=== PATIENT | female | born 1965 | race Two or more races ===

== ENCOUNTER 2021-11-24 01:10 | Emergency (ER) | payer BC ==
[~2021-11-24] VITALS: Ht 157.5 cm; Wt 65.8 kg
[2021-11-24] MEDS ORDERED: MORPHINE SULFATE 4 MG/ML SYR/VIAL IV ONE (02:00)
[2021-11-24 02:40] LABS: Basophils # (auto) 0.1 10 ^3/uL (0-0.2); Basophils % (auto) 0.9 % (0.0-2.0); Eosinophils # (auto) 0.1 10 ^3/uL (0-0.8); Eosinophils % (auto) 1.8 % (0.0-7.0); Hematocrit 38.2 % (36.0-46.0); Lymphocytes # (auto) 2.6 10 ^3/uL (0.4-5.4); Lymphocytes % (auto) 43.6 % (10.0-50.0); Mean Corpuscular Hgb Conc. 33.9 g/dL (32.0-36.0); Mean Corpuscular Volume 88.4 fL (80.0-100.0); Monocytes # (auto) 0.4 10 ^3/uL (0-1.3); Monocytes % (auto) 6.5 % (0.0-12.0); Neutrophils # (auto) 2.8 10 ^3/uL (1.6-8.6); Neutrophils % (auto) 47.2 % (37.0-80.0); Nucleated Red Blood Cells % 0.1 %; Red Blood Cells 4.32 10^6/uL (4.0-5.20); Red Cell Distribution Width 14.4 % (11.8-14.3)
[2021-11-24 02:56] LABS: Albumin 3.5 g/dL (3.4-5.0); Calcium 9.4 mg/dL (8.5-10.1); Potassium 3.8 mmol/L (3.5-5.1)
[2021-11-24 02:59] LABS: BUN/Creatinine Ratio 17.2; Bilirubin, Total 0.3 mg/dL (0.2-1.0); Total Protein 7.5 g/dL (6.4-8.2)
[2021-11-24 05:30] VITALS: BP 111/59
== END 2021-11-24 07:37 | disposition home or self-care (01) ==
LOC: ER 01:10
DX: R10.84 Generalized abdominal pain (principal); Z90.710 Acquired absence of both cervix and uterus
CPT/HCPCS: 36415; 74176; 80053; 85025; 93005; 96374; 99285; J2270

== ENCOUNTER 2023-03-19 08:36 | Emergency (ER) | payer BC, MEDICAID ==
[~2023-03-19] VITALS: Ht 154.9 cm; Wt 71.3 kg
[2023-03-19 08:55] VITALS: BP 134/91; PULSE 106; RESP 16; TEMP 97.7; O2SAT 95
[2023-03-19] MEDS ORDERED: CIPR0.3S67 OP (09:03)
== END 2023-03-19 09:10 | disposition home or self-care (01) ==
LOC: ER 08:36
DX: H10.33 Unspecified acute conjunctivitis, bilateral (principal)

== ENCOUNTER 2023-11-18 09:56 | Emergency (ER) | payer MEDICAID ==
[~2023-11-18] VITALS: Ht 154.9 cm; Wt 67.0 kg
[~2023-11-18 09:56] MED LIST: CIPR0.3S67 OP
[2023-11-18 10:56] VITALS: BP 118/76; PULSE 83; RESP 18; TEMP 97.7; O2SAT 96
[2023-11-18] MEDS ORDERED: TOB03OS OP (11:12)
== END 2023-11-18 11:20 | disposition home or self-care (01) ==
LOC: ER 09:56
DX: H10.33 Unspecified acute conjunctivitis, bilateral (principal); Z98.890 Other specified postprocedural states; Z79.899 Other long term (current) drug therapy